=== PATIENT | female | born 1980 | race Caucasian/White ===

== ENCOUNTER 2018-07-04 12:46 | Day surgery (SDC) | payer BC ==
[2018-07-03 16:25] VITALS: BMI 36.8
[2018-07-04] MEDS ORDERED: fentaNYL CITRATE 250 MCG/5 ML VIAL ONE (14:03)
[2018-07-04] MEDS ORDERED: PROPOFOL 20 ML ONE ×2 (14:03)
[2018-07-04] MEDS ORDERED: MIDAZOLAM HCL 2 MG/2 ML SINGLE DOSE VIAL ONE (14:03)
[2018-07-04] MEDS ORDERED: DEXAMETHASONE SOD PHOSPHATE 4 MG/1 ML VIAL ONE (14:03)
--- NOTE | 2018-07-04 14:29 | HP ---
History & Physical Update - History History: No Change (Menorrhaghia) - Physical Physical: No Change - Assessment Assessment: No Change - Plan Plan: No Change (Hysteroscopy, excision of uterine mass, D&C)
[2018-07-04] MEDS ORDERED: ONDANSETRON 4 MG/2 ML VIAL IVPUSH PRN (14:43)
[2018-07-04] MEDS ORDERED: oxyCODONE HCL 5 MG TABLET PO PRN (14:43)
[2018-07-04] MEDS ORDERED: PROMETHAZINE HCL 25 MG/1 ML VIAL IVPUSH PRN (14:43)
[2018-07-04] MEDS ORDERED: ceFAZolin SODIUM 1 GM VIAL IVPB ONE (14:44)
--- NOTE | 2018-07-04 17:07 | OP ---
Operative Note - Note: Operative Date: 07/04/18 Pre-Operative Diagnosis: Menometrorrhagia, fibroid uterus, endometrial mass Operation: Hysteroscopy, myomectomy, D&C Findings: submucosal/intra-cavitary myoma Post-Operative Diagnosis: Other (Menometrorrhagia, fibroid uterus, submucosal/ intra-cavitary myoma) Surgeon: Juan José Goel Anesthesiologist/PSYCHOLOGIST ENGINEERING: Sampson Hummel Anesthesia: General Specimens Removed: Submucosal myoma Estimated Blood Loss (mls): 100 Drains & Tubes with Location: Straight cath bladder at end of procedure Blood Volume Replaced (mls): 0 Fluid Volume Replaced (mls): 900 Operative Report Dictated: Yes
[2018-07-04 18:28] VITALS: BP 125/79; PULSE 76; TEMP 98.3
--- NOTE | 2018-07-04 20:40 | OP ---
DATE OF OPERATION: 07/04/2018 PREOPERATIVE DIAGNOSIS: Menometrorrhagia. Fibroid uterus. Endometrial mass. POSTOPERATIVE DIAGNOSIS: Menometrorrhagia. Fibroid uterus. Protruding submucosal/intracavitary myoma. SURGEON: Nasim Lopez M.D. ANESTHESIOLOGIST: Sampson Hummel M.D. ANESTHESIA: General anesthesia. COMPLICATIONS: None. ESTIMATED BLOOD LOSS: 100 mL PATHOLOGY: Fragments of the resected submucosal myoma, endometrial curettings. PROCEDURE: Hysteroscopy, myomectomy, dilation and curettage. FINDINGS: Examination under anesthesia revealed a small anteverted uterus. Speculum examination revealed active vaginal bleeding, hysteroscopy revealed a large submucosal/intracavitary myoma protruding mostly from the left uterine wall. The uterine cavity was overall enlarged and was sounded to 10 cm. PROCEDURE: The patient was met preoperatively. Risks, benefits, and alternatives of surgery were discussed in detail. All questions were answered. The patient verbalized her understanding. We reviewed the consent form, and the consent form was signed. All questions about the consent were also answered to patient's satisfaction. The patient was then brought to the OR with the IV running. She was placed on a surgical table in the supine position. The general anesthesia was achieved without difficulty. The patient was then placed in a dorsal lithotomy position using adjustable Calvin stirrups. She was examined under anesthesia with the findings as described above. The patient was then prepped and draped in the usual sterile fashion. A timeout procedure was conducted as per standard protocol. The surgeons then proceeded with the operation. A sterile speculum was introduced inside the patient's vagina. There was active bleeding noted from the uterus. The cervix was grasped with a single-toothed tenaculum. A real time pelvic abdominal ultrasound to localize the endometrial mass. The hysteroscope was then introduced through the cervical canal and not the uterine cavity. The hysteroscopy revealed a large intracavitary mass consistent with the fibroid. It was protruding mostly from the left uterine wall. A Symphion resectoscope was then used to excise the visualized portions of the fibroid. Once this was completed, good hemostasis was achieved with judicious use of cautery, also utilizing Symphion hysteroscope and resectoscope. Good hemostasis was noted. The hysteroscope was then removed from the patient. A sharp uterine curettage was performed under real time ultrasound guidance. Once this was completed, all of the tissue was sent to pathology for evaluation. All of the instruments were removed from the patient. Sponge, lap, and instrument counts were correct. Once again, good hemostasis was confirmed. The patient was then returned to supine position. She was transferred to recovery room, in stable condition and awake. NASIM LOPEZ M.D. [id number]
== END 2018-07-04 18:55 | disposition home or self-care (01) ==
LOC: JASU-SURG 12:46
PROVIDERS: ATTEND Obstetrics & Gynecology
PROC: 0UJD8ZZ Inspection of Uterus and Cervix, Via Natural or Artificial Opening Endoscopic (ICD-10-PCS; 2018-07-04)
PROC: 0UB98ZZ Excision of Uterus, Via Natural or Artificial Opening Endoscopic (ICD-10-PCS; principal; 2018-07-04 14:00)
PROC: 0UDB7ZX Extraction of Endometrium, Via Natural or Artificial Opening, Diagnostic (ICD-10-PCS; 2018-07-04 14:00)
DX: N92.1 Excessive and frequent menstruation with irregular cycle (principal); D25.0 Submucous leiomyoma of uterus
CPT/HCPCS: 36415; 76998-TC; 84703; 86850; 86900; 86901; 88305-TC; 94760

== ENCOUNTER 2019-11-14 12:33 | Inpatient (IN) | payer BC ==
[2019-11-14] MEDS ORDERED: SODIUM CHLORIDE 0.9% 500 ML INFUS.BAG IV ONE (13:20)
--- NOTE | 2019-11-14 14:01 | PDOC ---
History of Present Illness - General Chief Complaint: Vaginal Bleeding Stated Complaint: WEAKNESS Time Seen by Provider: 11/14/19 12:40 History Source: Patient Exam Limitations: No Limitations - History of Present Illness Initial Comments: 11/14/19 13:46 39-year-old female history of chronic anemia, irregular menses, uterine fibroids status post ablation x3, last ablation June 2018, blood transfusion approximately 18 months ago. Presents complaining of having vaginal bleeding x 5 days becoming heavier over the past 24 hours. She has soaked approximately 9 pads since 8 AM this morning. Feeling frontal headache, dizziness, fatigue, thirst and "shaky". Denies chest pain, shortness of breath, diarrhea, vomiting, back pain or any urinary symptoms. PASTRYCOOK: Dr. Goel PMD: Aileen Liz ([facility]) ROS: as above PE: GENERAL: Pallor HEAD: NCAT EYES: Pupils equal, round and reactive to light, sclera anicteric, conjunctiva clear ENT: pharynx: no erythema, no exudate, uvula midline NECK: supple CHEST: nontender RESP: clear, no w/r/r CARDIO: rrr, no m/g/r ABD: +BS, soft, nontender, non distended pelvic: Approximately 10 cc of blood in the vault, no clots noted, os closed, no CMT, no adnexal tenderness to palpation BACK: no midline spinal ttp, no CVAT EXTREMITIES: Normal range of motion, no edema NEUROLOGICAL: Normal speech, normal gait SKIN: Warm, Dry Is this a multiple visit Asthma Patient?: No Past History - Medical History Allergies/Adverse Reactions: Allergies Allergy/AdvReac Type Severity Reaction Status Date / Time Penicillins AdvReac Severe Rash Verified 11/14/19 13:20 Home Medications: Ambulatory Orders NK [No Known Home Medication] 11/14/19 Anemia: Yes Asthma: No Cancer: No Cardiac Disorders: No CVA: No COPD: No CHF: No Dementia: No Diabetes: No GI Disorders: No Disorders: No HTN: No Hypercholesterolemia: No Liver Disease: No Seizures: No Thyroid Disease: No - Surgical History Abdominal Surgery: No Appendectomy: No Cardiac Surgery: No Cholecystectomy: No Lung Surgery: No Neurologic Surgery: No Orthopedic Surgery: No - Reproductive History Is Patient Now?: No - Immunization History Immunization Up to Date: No - Psycho-Social/Smoking History Smoking History: Never smoked Have you smoked in the past 12 months: No Information on smoking cessation initiated: No - Substance Abuse Hx (Audit-C & DAST Scrn) How often the patient has a drink containing alcohol: Never Score: In Men: 4 or > Positive; In Women: 3 or > Positive: 0 Screen Result (Pos requires Nsg. Audit-10AR): Negative In the last yr the pt used illegal drug/Rx for NonMed reason: No Score: Yes response is considered Positive: 0 Screen Result (Positive result requires Nsg. DAST-10): Negative *Physical Exam - Vital Signs Last Vital Signs Temp Pulse Resp BP Pulse Ox 98.3 F 89 18 108/54 L 100 11/14/19 12:35 11/14/19 12:35 11/14/19 12:35 11/14/19 12:35 11/14/19 12:35 ED Treatment Course - LABORATORY CBC & Chemistry Diagram: 11/14/19 13:40 11/14/19 13:40 - RADIOLOGY Radiology Studies Ordered: Category Date Time Status CHEST PA & LAT [RAD] Stat Radiology 11/14/19 13:20 Ordered Medical Decision Making - Medical Decision Making 11/14/19 14:47 39-year-old female history of chronic anemia, irregular menses, uterine fibroids status post ablation x3, last ablation June 2018, blood transfusion approximately 18 months ago. Presents complaining of having vaginal bleeding x 5 days becoming heavier over the past 24 hours. She has soaked approximately 9 pads since 8 AM this morning. Feeling frontal headache, dizziness, fatigue, thirst and "shaky". Denies chest pain, shortness of breath, diarrhea, vomiting, back pain or any urinary symptoms. hg 6.8 awaiting ecg, cxr covide test ordered Awaiting type and screen Ordered 1 unit of packed red blood cells Will admit 11/14/19 14:[address] Goel who will evaluate patient this afternoon in the ED Spoke with admitting resident, will admit to Dr. Hurtado 11/14/19 14:59 Discharge - Discharge Information Problems reviewed: Yes Clinical Impression/Diagnosis: Symptomatic anemia Condition: Stable - Admission Yes - Follow up/Referral - Patient Discharge Instructions - Post Discharge Activity
[2019-11-14 14:03] LABS: BASO % 1.3 % (0-2.0); HEMATOCRIT 23.5 % (32.4-45.2); LYMPH % 16.8 % (8-40); MCHC 28.9 g/dl (32.0-36.0); MEAN CELL VOLUME 65.9 fl (80-96); MONO % 4.8 % (3.8-10.2); NEUT % 75.1 % (42.8-82.8); PLATELET COUNT 469 K/MM3 (134-434); RBC 3.56 M/mm3 (3.60-5.2); RDW 20.6 % (11.6-15.6); WHITE BLOOD COUNT 8.2 K/mm3 (4.0-10.0)
[2019-11-14 14:05] LABS: HEMOGLOBIN 6.8 GM/dL (10.7-15.3)
[2019-11-14 14:22] LABS: ALBUMIN 3.5 g/dl (3.4-5.0); ALK PHOS 109 U/L (45-117); ANION GAP 5 MMOL/L (8-16); BILIRUBIN,TOTAL 0.2 mg/dL (0.2-1); BLOOD UREA NITROGEN 9.2 mg/dL (7-18); CALCIUM 8.7 mg/dL (8.5-10.1); CHLORIDE 106 mmol/L (98-107); CO2 26 mmol/L (21-32); CREATININE 0.8 mg/dL (0.55-1.3); GLUCOSE,RANDOM 99 mg/dL (74-106); POTASSIUM 3.8 mmol/L (3.5-5.1); SGOT/AST 17 U/L (15-37); SGPT/ALT 21 U/L (13-61); SODIUM 138 mmol/L (136-145); TOT PROT 7.2 g/dl (6.4-8.2)
[2019-11-14 14:33] LABS: ANISOCYTOSIS 2+; MACROCYTOSIS 0; PLATELET ESTIMATE NORMAL
[2019-11-14 15:26] LABS: ACTIVATED PTT 34.2 SECONDS (25.2-36.5); INR 1.03 (0.83-1.09); PROTHROMBIN TIME (PATIENT) 12.2 SEC (9.7-13.0)
[2019-11-14 15:29] LABS: EPI CELLS 4 /uL (0-25.1); HYALINE CASTS 6 /uL (0-3.1); PH,URINE 5.5 (5.0-8.0); URINE APPEARANCE CLOUDY; URINE BACTERIA 110 /uL (0-1359); URINE BILIRUBIN NEGATIVE (NEGATIVE); URINE COLOR ORANGE; URINE GLUCOSE (UA) NEGATIVE (NEGATIVE); URINE KETONE NEGATIVE (NEGATIVE); URINE LEUK ESTERASE 1+ (NEGATIVE); URINE NITRITE NEGATIVE (NEGATIVE); URINE PROTEIN 2+ (NEGATIVE); URINE RBC 20239 /uL (0-23.9); URINE WBC 177 /uL (0-25.8)
--- NOTE | 2019-11-14 20:39 | CON.OBG ---
Consult Consult Specialty:: [employer] WORKER Referred by:: ER Reason for Consultation:: Menorrhagia, anemia, fibroid uterus - History of Present Illness Chief Complaint: 39yo P2 with heavy menses and prior h/o endometrial ablaton, presented to ER with heavy vaginal bleeding. History of Present Illness: The pt has a h/o endometrial ablation in 2016, followed by persistent heavy menses. She then underwent hysteroscopic fibroid resection in 2019. The pt had no bleeding after that x 3-4 months after which she began bleeding again. The pt reports that her last 2 periods were long and heavy. She states current period began about 5 d ago and heavy x 24 hrs. On ER presentation the pt reported feeling headache and tired. The pt is noted to have stable BP, not tachycardic. She is now getting a blood transfusion. 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[employer]: No: Alzheimer's, CVA, Dementia, Migraine, Multiple Sclerosis, Peripheral Neuropathy, Parkinson's, Seizure, Syncope, TIA, Vertigo, Other Cardio/Vascular: No: AFIB, Aneurysm, Aortic Insufficiency, Aortic Stenosis, CAD, CHF, Deep Vein Thrombosis, HTN, Hyperlipdemia, UT, Mitral Insufficiency, Mitral Stenosis, Murmur, Pulmonary Hypertension, Other Pulmonary: No: Asthma, Bronchitis, Cancer, COPD, O2 Dependent, Pneumonia, Previously Intubated, Pulmonary Embolus, Pulmonary Fibrosis, Sleep Apnea, Other Gastrointestinal: No: Ascites, Cancer, Constipation, Crohn's Disease, Diverticulitis, Diverticulosis, Esophageal Varices, Gastritis, GERD, GI Bleed, Hemorrhoids, Hiatal Hernia, Inflamatory Bowel Disease, Irritable Bowel Disease, Pancreatitis, Peptic Ulcer Disease, Ulcerative Colitis, Other Hepatobiliary: No: Cirrhosis, Cholelithiasis, Cholecystitis, Choledocholithiasis, Hepatitis A, Hepatitis B, Hepatitis C, Other Renal/: No: Renal Failure, Renal Inusuff, BPH, Cancer, Hematuria, Hemodialysis, Neurogenic Bladder, Renal Calculi, UTI, Other Reproductive: No: Ectopic , Endometriosis, Fibroids, PID, Polycystic Ovary Syndrome, Postmenopausal, Other ...LMP: 11/11/19 ...: No Heme/Onc: Yes: Anemia Infectious Disease: No: AIDS, C-Diff, Herpes Zoster, HIV, MRSA, STD's, Tuberculosis, VREF, Other Psych: No: Addictions, Anxiety, Bipolar, Depression, Panic, Psychosis, Schizophrenia, Other Musculoskeletal: No: Bursitis, Chronic low back pain, Hemiparesis, Hemiplegia, Osteoarthritis, Paraplegia, Other Rheumatology: No: Fibromyalgia, Gout, Lupus, Rheumatoid Arthritis, Sarcoidosis, Vasculitis, Other ENT: No: Allergic Rhinitis, Sinusitis, Other Endocrine: No: [place]'s Disease, Julissa's Disease, Diabetes Insipidus, Diabetes Mellitus, Hyperparathyroidism, Hyperthyroidism, Hypothyroidism, Osteop enia, SIADH, Other Dermatology: No: Basal Cell, Cellulitis, Eczema, Melanoma, Psoriasis, Squamous Cell, Other Additional Medical History: Obesity - Past Surgical History Past Surgical History: Yes: (x 2), Tubal Ligation Additional Surgical History: D&C/Endometrial ablation ([facility]) in 03/11/2015. Hysteroscopic Myomectomy in 06/2018 - Alcohol/Substance Use Hx Alcohol Use: Yes (social) History of Substance Use: reports: None - Smoking History Smoking history: Never smoked Have you smoked in the past 12 months: No - Social History ADL: Independent Home Medications - Allergies Allergies/Adverse Reactions: Allergies Allergy/AdvReac Type Severity Reaction Status Date / Time Penicillins AdvReac Severe Rash Verified 11/14/19 13:20 - Home Medications Home Medications: Ambulatory Orders NK [No Known Home Medication] 11/14/19 Family Medical History Family Hx Diabetes: Grandmother (maternal) Review of Systems - Review of Systems Constitutional: reports: Weakness Eyes: reports: No Symptoms HENT: reports: No Symptoms Neck: reports: No Symptoms Cardiovascular: reports: No Symptoms Respiratory: reports: No Symptoms Gastrointestinal: reports: No Symptoms Genitourinary: reports: No Symptoms Breasts: reports: No Symptoms Reported Musculoskeletal: reports: No Symptoms Integumentary: reports: No Symptoms Neurological: reports: No Symptoms Endocrine: reports: No Symptoms Hematology/Lymphatic: reports: No Symptoms Psychiatric: reports: No Symptoms Pain Intensity: 0 Physical Exam-[employer] WORKER Vital Signs: Vital Signs Temperature 98.5 F 11/14/19 19:01 Pulse Rate 85 11/14/19 19:01 Respiratory Rate 18 11/14/19 19:01 Blood Pressure 107/66 11/14/19 19:01 O2 Sat by Pulse Oximetry (%) 100 11/14/19 19:01 Constitutional: Yes: Well Nourished, No Distress, Calm Eyes: Yes: WNL, Conjunctiva Clear, EOM Intact HENT: Yes: WNL, Atraumatic, Normocephalic Neck: Yes: WNL, Supple, Trachea Midline Cardiovascular: Yes: WNL, Regular Rate and Rhythm Respiratory: Yes: WNL, Regular, CTA Bilaterally Gastrointestinal: Yes: WNL, Normal Bowel Sounds, Soft ...Rectal Exam: Yes: Deferred Renal/: Yes: Vaginal Bleeding Pelvis: Yes: WNL External Genitalia: Yes: Normal Internal Exam Deferred: No Vaginal Exam: Yes: Bleeding (excessive) Cervix: Yes: Normal Uterus: Yes: Normal, Freely Moveable, Anteverted Adnexa: Normal: Left, Right Musculoskeletal: Yes: WNL Extremities: Yes: WNL Edema: No Integumentary: Yes: WNL Neurological: Yes: WNL, Alert, Oriented ...Motor Strength: WNL Psychiatric: Yes: WNL, Alert, Oriented Labs: CBC, BMP 11/14/19 13:40 11/14/19 13:40 Problem List - Problems (1) Excessive and frequent menstruation with regular cycle Assessment/Plan: Pt with menorrhagia that resulted in anemia. Patient had benign endometrial path in 06/2018. Plan to administer IV estrogen to stop/slow the bleeding and allow for Hg to increase. She is awaiting firther evaluation with pelvic US. If the IV estrogen stops the bleeding, plan to d/c home with combination control pills. I will hold off on D&C or other surgical intervention, in attempt to increase Hg pre-op. We discussed a possible hysterectomy in the future. Problems reviewed: Yes Code(s): N92.0 - EXCESSIVE AND FREQUENT MENSTRUATION WITH REGULAR CYCLE (2) Anemia due to blood loss Assessment/Plan: Advise to transfuse to Hct at/above 30%. Problems reviewed: Yes Code(s): D50.0 - IRON DEFICIENCY ANEMIA SECONDARY TO BLOOD LOSS (CHRONIC) (3) Fibroid uterus Assessment/Plan: Plan for pelvic US TV/TA Code(s): D25.9 - LEIOMYOMA OF UTERUS, UNSPECIFIED Qualifiers: Uterine leiomyoma location: unspecified location Qualified Code(s): D25.9 - Leiomyoma of uterus, unspecified
[2019-11-14] MEDS ORDERED: ESTROGENS,CONJUGATED 25 MG VIAL IVPB PRN (20:41)
[2019-11-14] MEDS ORDERED: ESTROGENS,CONJUGATED 25 MG VIAL IVPB ONE (21:10)
--- NOTE | 2019-11-14 21:43 | HP ---
CHIEF COMPLAINT: fatigue HISTORY OF PRESENT ILLNESS: 39 F h/o uterine fibroids, menstrual bleeding in the past requiring pRBC transfusions presents w/ fatigue and referral from [facility] outpatient office for transfusion for symptomatic anemia of Hgb 6.8. Patient endorses chronic fatigue, occasional dizziness/palpitations, denies fever/chills/SOB. Endorses many years of heavy menstrual bleeding, last transfusion was about 1 year ago. ER course was notable for: (1) Hgb 6.8 (2) 1 unit pRBC transfusion Recent Travel: denies PAST MEDICAL HISTORY: as above PAST SURGICAL HISTORY: denies Social History: denies x3 Allergies Penicillins Adverse Reaction (Severe, Verified 11/14/19 13:20) Rash HOME MEDICATIONS: Home Medications Medication Instructions Recorded NK [No Known Home Medication] 11/14/19 PHYSICAL EXAMINATION Vital Signs - 24 hr 11/14/19 11/14/19 11/14/19 12:35 15:40 17:16 Temperature 98.3 F 98.7 F 98.9 F Pulse Rate 89 Pulse Rate [ 79 84 Left Radial] Respiratory 18 16 18 Rate Blood Pressure 108/54 L Blood Pressure 112/64 109/55 L [Left Arm] O2 Sat by Pulse 100 100 100 Oximetry (%) 11/14/19 11/14/19 19:01 20:50 Temperature 98.5 F Pulse Rate Pulse Rate [ 85 86 Left Radial] Respiratory 18 18 Rate Blood Pressure Blood Pressure 107/66 103/59 L [Left Arm] O2 Sat by Pulse 100 99 Oximetry (%) GENERAL: Awake, alert, and fully oriented, slightly pale HEENT NC/AT, dry MM, pale conjunctiva, neck supple LUNGS: Breath sounds equal, clear to auscultation bilaterally. No wheezes, and no crackles. No accessory muscle use. HEART: Regular rate and rhythm, normal S1 and S2 without murmur, rub or gallop. ABDOMEN: Soft, nontender, not distended, normoactive bowel sounds, no guarding, no rebound, no masses. No hepatomegaly or splenomegaly. MUSCULOSKELETAL: Normal range of motion at all joints. No bony deformities or tenderness. No CVA tenderness. UPPER EXTREMITIES: 2+ pulses, warm, well-perfused. No cyanosis. No clubbing. No peripheral edema. LOWER EXTREMITIES: 2+ pulses, warm, well-perfused. No calf tenderness. No peripheral edema. NEUROLOGICAL: Cranial nerves II-XII intact. Normal speech. Normal gait. PSYCHIATRIC: Cooperative. Good eye contact. Appropriate mood and affect. SKIN: Warm, dry, normal turgor, no rashes or lesions noted, normal capillary refill. Laboratory Results - last 24 hr 11/14/19 11/14/19 11/14/19 13:40 13:40 13:40 WBC 8.2 RBC 3.56 L Hgb 6.8 L* Hct 23.5 L MCV 65.9 L MCH 19.0 L MCHC 28.9 L RDW 20.6 H Plt Count 469 H MPV 7.0 L Absolute Neuts (auto) 6.1 Neutrophils % 75.1 Lymphocytes % 16.8 Monocytes % 4.8 Eosinophils % 2.0 Basophils % 1.3 Nucleated RBC % 0 Hypochromia 0 Platelet Estimate Normal Polychromasia 0 Poikilocytosis 0 Anisocytosis 2+ Microcytosis 2+ Macrocytosis 0 PT with INR 12.20 INR 1.03 PTT (Actin FS) 34.2 Sodium 138 Potassium 3.8 Chloride 106 Carbon Dioxide 26 Anion Gap 5 L BUN 9.2 Creatinine 0.8 Est GFR (CKD-EPI)AfAm 106.13 Est GFR (CKD-EPI)NonAf 91.57 Random Glucose 99 Calcium 8.7 Total Bilirubin 0.2 AST 17 ALT 21 Alkaline Phosphatase 109 Total Protein 7.2 Albumin 3.5 Beta HCG, Quant < 1.0 Urine Color Urine Appearance Urine pH Ur Specific [place] Urine Protein Urine Glucose (UA) Urine Ketones Urine Blood Urine Nitrite Urine Bilirubin Urine Urobilinogen Ur Leukocyte Esterase Urine WBC (Auto) Urine RBC (Auto) Urine Casts (Auto) U Pathogenic Cast Auto U Epithel Cells (Auto) Urine Bacteria (Auto) Blood Type Antibody Screen Crossmatch 11/14/19 11/14/19 11/14/19 13:40 15:00 15:30 WBC RBC Hgb Hct MCV MCH MCHC RDW Plt Count MPV Absolute Neuts (auto) Neutrophils % Lymphocytes % Monocytes % Eosinophils % Basophils % Nucleated RBC % Hypochromia Platelet Estimate Polychromasia Poikilocytosis Anisocytosis Microcytosis Macrocytosis PT with INR INR PTT (Actin FS) Sodium Potassium Chloride Carbon Dioxide Anion Gap BUN Creatinine Est GFR (CKD-EPI)AfAm Est GFR (CKD-EPI)NonAf Random Glucose Calcium Total Bilirubin AST ALT Alkaline Phosphatase Total Protein Albumin Beta HCG, Quant Urine Color [place] Urine Appearance Cloudy Urine pH 5.5 Ur Specific [place] 1.026 Urine Protein 2+ H Urine Glucose (UA) Negative Urine Ketones Negative Urine Blood 3+ H Urine Nitrite Negative Urine Bilirubin Negative Urine Urobilinogen 1.0 Ur Leukocyte Esterase 1+ H Urine WBC (Auto) 177 Urine RBC (Auto) 73935 Urine Casts (Auto) 6 U Pathogenic Cast Auto Non seen U Epithel Cells (Auto) 4 Urine Bacteria (Auto) 110 Blood Type O POSITIVE O POSITIVE Antibody Screen Negative Negative Crossmatch See Detail ASSESSMENT/PLAN: 39 F Symptomatic anemia h/o uterine fibroids Obesity Plan: Transfuse w/ goal >7.0, if plans for inpatient surgery then give additional unit of pRBC for improvement of Hgb by 30% Plan for inpatient estrogen therapy per [facility], then OCP as OP Ambulation for DVT ppx [facility] service following Monitor on floors Family Medical History Family History: As Documented Visit type - Emergency Visit Emergency Visit: Yes ED Registration Date: 11/14/19 Care time: The patient presented to the Emergency Department on the above date and was hospitalized for further evaluation of their emergent condition. - New Patient This patient is new to me today: Yes Date on this admission: 11/14/19 - Critical Care Critical Care patient: No
[2019-11-15 00:31] VITALS: BMI 38.4
[2019-11-15] MEDS ORDERED: oxyCODONE HCL 5 MG TABLET PO PRN (00:38)
[2019-11-15] MEDS ORDERED: SODIUM CHLORIDE 1,000 ML IV SCH (00:45)
[2019-11-15 08:48] LABS: BASO % 1.5 % (0-2.0); EOS % 5.3 % (0-4.5); HEMATOCRIT 21.7 % (32.4-45.2); LYMPH % 20.5 % (8-40); MCHC 30.4 g/dl (32.0-36.0); MEAN CELL VOLUME 69.3 fl (80-96); MEAN PLT VOLUME 7.2 fl (7.5-11.1); MONO % 6.7 % (3.8-10.2); PLATELET COUNT 379 K/MM3 (134-434); RBC 3.13 M/mm3 (3.60-5.2); RDW 22.5 % (11.6-15.6); WHITE BLOOD COUNT 6.9 K/mm3 (4.0-10.0)
[2019-11-15 09:09] LABS: HEMOGLOBIN 6.6 GM/dL (10.7-15.3)
[2019-11-15 09:14] LABS: ALBUMIN 2.7 g/dl (3.4-5.0); BILIRUBIN,TOTAL 0.4 mg/dL (0.2-1); BLOOD UREA NITROGEN 9.7 mg/dL (7-18); CALCIUM 7.4 mg/dL (8.5-10.1); CREATININE 0.6 mg/dL (0.55-1.3); TOT PROT 5.5 g/dl (6.4-8.2)
[2019-11-15 10:49] LABS: PLATELET ESTIMATE NORMAL
[2019-11-15] MEDS ORDERED: PT OWN MED DRAWER 7, Y5N ONE (12:22)
--- NOTE | 2019-11-15 12:34 | PN ---
Progress Note (SOAP) - Subjective Chief Complaint: Pt is feeling better. She is getting a second unit of PRBC. The pt reports the vaginal bleeding decreased. No dizziness, no SOB, no chest pain. History of Present Illness: The pt was admitted for symptomatic anemia due to menorrhagia. She is now getting a blood transfusion. Pt is also s/p Estrogen IV x 1 with improvement in bleeding. - Current Medications Current Medications: Active Medications Estrogens Conjugated (Premarin Injection -) 25 mg IVPB Q6H PRN PRN Reason: VAGINAL BLEEDING Sodium Chloride (Normal Saline -) 1,000 mls @ 100 mls/hr IV ASD[facility] Last Admin: 11/15/19 01:00 Dose: 100 mls/hr Documented by: Oxycodone HCl (Roxicodone -) 5 mg PO ONCE PRN PRN Reason: PAIN LEVEL 7 - 10 - Objective Vital Signs: Vital Signs Temperature 99.3 F 11/15/19 05:55 Pulse Rate 80 11/15/19 05:55 Respiratory Rate 18 11/15/19 05:55 Blood Pressure 96/56 L 11/15/19 05:55 O2 Sat by Pulse Oximetry (%) 97 11/15/19 05:55 Constitutional: Yes: Well Nourished, No Distress, Calm Eyes: Yes: WNL, Conjunctiva Clear, EOM Intact HENT: Yes: WNL, Atraumatic, Normocephalic Neck: Yes: WNL, Supple, Trachea Midline Cardiovascular: Yes: WNL, Regular Rate and Rhythm Respiratory: Yes: WNL, Regular, CTA Bilaterally Gastrointestinal: Yes: WNL, Normal Bowel Sounds, Soft Genitourinary: Yes: Vaginal Bleeding (light) Musculoskeletal: Yes: WNL Extremities: Yes: WNL Peripheral Pulses WNL: Yes Edema: No Integumentary: Yes: WNL Neurological: Yes: WNL, Alert, Oriented ...Motor Strength: Yes: WNL Psychiatric: Yes: WNL, Alert, Oriented Labs Lab Results: CBCD WBC 6.9 K/mm3 (4.0-10.0) 11/15/19 07:48 RBC 3.13 M/mm3 (3.60-5.2) L 11/15/19 07:48 Hgb 6.6 GM/dL (10.7-15.3) L* 11/15/19 07:48 Hct 21.7 % (32.4-45.2) L 11/15/19 07:48 MCV 69.3 fl (80-96) L 11/15/19 07:48 MCHC 30.4 g/dl (32.0-36.0) L 11/15/19 07:48 RDW 22.5 % (11.6-15.6) H 11/15/19 07:48 Plt Count 379 K/MM3 (134-434) 11/15/19 07:48 MPV 7.2 fl (7.5-11.1) L 11/15/19 07:48 CMP Sodium 142 mmol/L (136-145) 11/15/19 07:48 Potassium 4.0 mmol/L (3.5-5.1) 11/15/19 07:48 Chloride 112 mmol/L (98-107) H 11/15/19 07:48 Carbon Dioxide 24 mmol/L (21-32) 11/15/19 07:48 Anion Gap 6 MMOL/L (8-16) L 11/15/19 07:48 BUN 9.7 mg/dL (7-18) 11/15/19 07:48 Creatinine 0.6 mg/dL (0.55-1.3) 11/15/19 07:48 Random Glucose 93 mg/dL (74-106) 11/15/19 07:48 Calcium 7.4 mg/dL (8.5-10.1) L 11/15/19 07:48 Total Bilirubin 0.4 mg/dL (0.2-1) 11/15/19 07:48 AST 14 U/L (15-37) L 11/15/19 07:48 ALT 17 U/L (13-61) 11/15/19 07:48 Alkaline Phosphatase 82 U/L (45-117) 11/15/19 07:48 Total Protein 5.5 g/dl (6.4-8.2) L 11/15/19 07:48 Albumin 2.7 g/dl (3.4-5.0) L 11/15/19 07:48 Imaging - Results Ultrasound: Report Reviewed (submucosal myoma and possible cervical myoma vs. polyp on ultrasound) Problem List - Problems (1) Excessive and frequent menstruation with regular cycle Assessment/Plan: Pt with menorrhagia that resulted in anemia. Patient with known h/o fibroids. US images and reports were reviewed by me. She is noted to have a submucosal myoma and a possible cervical myoma vs. polyp (or blood clot). However, no cervical masses were noted on exam. The IV estrogen x 1 dose had improved the bleeding. Plan to give a second dose to achieve a more sustained cessation of vaginal bleeding and to allow for improvement in Hg. Plan to d/c home with combination control pills, as a taper: 3 tab PO daily x 3 days, followed by 2 tab PO daily x 2 days, followed by 1 tab PO daily. Pt will f/u with me as outpatient w/in 1-2 weeks. I will hold off on D&C or other surgical intervention, in attempt to increase Hg pre-op. We discussed a possible hysterectomy in the future. Problems reviewed: Yes Code(s): N92.0 - EXCESSIVE AND FREQUENT MENSTRUATION WITH REGULAR CYCLE (2) Anemia due to blood loss Assessment/Plan: Complete at least 3u PRBC prior to discharge. Multivitamins and PO iron at home. Problems reviewed: Yes Code(s): D50.0 - IRON DEFICIENCY ANEMIA SECONDARY TO BLOOD LOSS (CHRONIC) (3) Fibroid uterus Assessment/Plan: Pt with know uterine fibroids. The US reports and images were reviewed and d/w pt. Problems reviewed: Yes Code(s): D25.9 - LEIOMYOMA OF UTERUS, UNSPECIFIED Qualifiers: Uterine leiomyoma location: unspecified location Qualified Code(s): D25.9 - Leiomyoma of uterus, unspecified
--- NOTE | 2019-11-15 12:40 | EKG ---
Test Reason : Blood Pressure : / mmHG Vent. Rate : 075 BPM Atrial Rate : 075 BPM P-R Int : 132 ms QRS Dur : 086 ms QT Int : 398 ms P-R-T Axes : 009 -04 -09 degrees QTc Int : 444 ms POOR DATA QUALITY, INTERPRETATION MAY BE ADVERSELY AFFECTED NORMAL SINUS RHYTHM MINIMAL VOLTAGE CRITERIA FOR LVH, MAY BE NORMAL VARIANT NONSPECIFIC T WAVE ABNORMALITY NO PREVIOUS ECGS AVAILABLE Confirmed by KIERRA MON MD ([id number]) on 11/15/2019 12:40:15 PM Referred By: Confirmed By:KIERRA MON MD
--- NOTE | 2019-11-15 13:07 | PN ---
Teaching Attending Note Name of Resident: Fernando Caballero ATTENDING PHYSICIAN STATEMENT I saw and evaluated the patient. I reviewed the resident's note and discussed the case with the resident. I agree with the resident's findings and plan as documented. SUBJECTIVE: she feels much better now. no GALARZA . bleeding has much improved . changed one pad since am. no abd pain. no dysuria OBJECTIVE: NAd . awake , alert, cooperative . pale . MMM CV: RRR, no MRG Lungs: CTAB ext : No edema or erythema on upper or lower extremities Abd: soft, NT, ND, NL BS ASSESSMENT AND PLAN: 39 y/o lady with h/o chronic irion def anemia due to heavy menstrual periods form fibroids who was referred fro worsenign anemia. 1- Acute on chronic blood loss iron def anemia 2- asymptomatic pyuria. 3- uterine Lyomatomas. plan : - iron studies , TV US reviewed. - give 2 more units of RBC ( received one yesterday ) - PRODUCT MARKETING DIRECTOR input noted and appreciated. one more dose of Estrogen today - taper control pills at dc - will give a dose of Venofer today , then she was advised to get a full course of iron infusionas out pt with heme or PCP as she can't tolerate po iron - enlarged cervics to be followed as out pt - No need for Abx for asymptomatic pyuria . vaginal bleed could have affected UA as well will dc later today after repeating CBC.
--- NOTE | 2019-11-15 13:31 | PN ---
Physical Exam: SUBJECTIVE: Patient seen and examined at bedside. No acute events reported overnight. Patient states that she is feeling better this morning and doesn't feel as weak as yesterday. OBJECTIVE: Vital Signs Period Temp Pulse Resp BP Sys/Hi Pulse Ox Last 24 Hr 98.3 F-99.3 F 79-86 16-18 96-118/53-66 97-100 GENERAL: AAOx3, in no acute distress, appears pale HEENT: NCAT, PERRLA, EOMI, sclera anicteric, conjunctiva clear, oropharynx clear w/o exudates. MMM. NECK: Normal ROM, supple, no lymphadenopathy, JVD, or masses LUNGS: CTABL no wheezes/ rhonchi/ rales. No distress, speaks in full sentences. No increased work of breathing. HEART: RRR, normal S1 S2, no M/R/G, peripheral pulses 2+ and equal b/l ABDOMEN: Soft, NTND, + BS. No guarding or rebound. No hepatomegaly or splenomegaly. MSK: ROM WNL EXTREMITIES: Normal inspection. No peripheral edema. No clubbing or cyanosis. NEUROLOGICAL: CN II-XII intact. Normal speech, normal gait, no focal sensorimotor deficits. SKIN: Warm, Dry, normal turgor, no rashes or lesions noted Laboratory Results - last 24 hr CBC, BMP 11/15/19 07:48 11/15/19 07:48 11/14/19 11/14/19 11/14/19 13:40 13:40 13:40 WBC 8.2 RBC 3.56 L Hgb 6.8 L* Hct 23.5 L MCV 65.9 L MCH 19.0 L MCHC 28.9 L RDW 20.6 H Plt Count 469 H MPV 7.0 L Absolute Neuts (auto) 6.1 Neutrophils % 75.1 Lymphocytes % 16.8 Monocytes % 4.8 Eosinophils % 2.0 Basophils % 1.3 Nucleated RBC % 0 Hypochromia 0 Platelet Estimate Normal Platelet Comment Polychromasia 0 Poikilocytosis 0 Anisocytosis 2+ Microcytosis 2+ Macrocytosis 0 PT with INR 12.20 INR 1.03 PTT (Actin FS) 34.2 Sodium 138 Potassium 3.8 Chloride 106 Carbon Dioxide 26 Anion Gap 5 L BUN 9.2 Creatinine 0.8 Est GFR (CKD-EPI)AfAm 106.13 Est GFR (CKD-EPI)NonAf 91.57 Random Glucose 99 Hemoglobin A1c % Calcium 8.7 Iron TIBC Iron Saturation Unsaturated IBC Ferritin Total Bilirubin 0.2 AST 17 ALT 21 Alkaline Phosphatase 109 Total Protein 7.2 Albumin 3.5 TSH Beta HCG, Quant < 1.0 Urine Color Urine Appearance Urine pH Ur Specific [place] Urine Protein Urine Glucose (UA) Urine Ketones Urine Blood Urine Nitrite Urine Bilirubin Urine Urobilinogen Ur Leukocyte Esterase Urine WBC (Auto) Urine RBC (Auto) Urine Casts (Auto) U Pathogenic Cast Auto U Epithel Cells (Auto) Urine Bacteria (Auto) Blood Type Antibody Screen Crossmatch 11/14/19 11/14/19 11/14/19 13:40 15:00 15:30 WBC RBC Hgb Hct MCV MCH MCHC RDW Plt Count MPV Absolute Neuts (auto) Neutrophils % Lymphocytes % Monocytes % Eosinophils % Basophils % Nucleated RBC % Hypochromia Platelet Estimate Platelet Comment Polychromasia Poikilocytosis Anisocytosis Microcytosis Macrocytosis PT with INR INR PTT (Actin FS) Sodium Potassium Chloride Carbon Dioxide Anion Gap BUN Creatinine Est GFR (CKD-EPI)AfAm Est GFR (CKD-EPI)NonAf Random Glucose Hemoglobin A1c % Calcium Iron TIBC Iron Saturation Unsaturated IBC Ferritin Total Bilirubin AST ALT Alkaline Phosphatase Total Protein Albumin TSH Beta HCG, Quant Urine Color [place] Urine Appearance Cloudy Urine pH 5.5 Ur Specific [place] 1.026 Urine Protein 2+ H Urine Glucose (UA) Negative Urine Ketones Negative Urine Blood 3+ H Urine Nitrite Negative Urine Bilirubin Negative Urine Urobilinogen 1.0 Ur Leukocyte Esterase 1+ H Urine WBC (Auto) 177 Urine RBC (Auto) 83069 Urine Casts (Auto) 6 U Pathogenic Cast Auto Non seen U Epithel Cells (Auto) 4 Urine Bacteria (Auto) 110 Blood Type O POSITIVE O POSITIVE Antibody Screen Negative Negative Crossmatch See Detail See Detail 11/15/19 11/15/19 11/15/19 07:48 07:48 07:48 WBC 6.9 RBC 3.13 L Hgb 6.6 L* Hct 21.7 L MCV 69.3 L MCH 21.0 L D MCHC 30.4 L RDW 22.5 H Plt Count 379 MPV 7.2 L Absolute Neuts (auto) 4.5 Neutrophils % 66.0 Lymphocytes % 20.5 D Monocytes % 6.7 Eosinophils % 5.3 H D Basophils % 1.5 Nucleated RBC % 0 Hypochromia Platelet Estimate Normal Platelet Comment Present Polychromasia Poikilocytosis Anisocytosis Microcytosis Macrocytosis PT with INR INR PTT (Actin FS) Sodium 142 Potassium 4.0 Chloride 112 H Carbon Dioxide 24 Anion Gap 6 L BUN 9.7 Creatinine 0.6 Est GFR (CKD-EPI)AfAm 131.22 Est GFR (CKD-EPI)NonAf 113.22 Random Glucose 93 Hemoglobin A1c % < 3.5 L Calcium 7.4 L Iron 14 L TIBC 415 Iron Saturation 3 L Unsaturated IBC 401 H Ferritin 3.0 L Total Bilirubin 0.4 AST 14 L ALT 17 Alkaline Phosphatase 82 Total Protein 5.5 L Albumin 2.7 L TSH 2.66 Beta HCG, Quant Urine Color Urine Appearance Urine pH Ur Specific [place] Urine Protein Urine Glucose (UA) Urine Ketones Urine Blood Urine Nitrite Urine Bilirubin Urine Urobilinogen Ur Leukocyte Esterase Urine WBC (Auto) Urine RBC (Auto) Urine Casts (Auto) U Pathogenic Cast Auto U Epithel Cells (Auto) Urine Bacteria (Auto) Blood Type Antibody Screen Crossmatch Active Medications Generic Name Dose Route Start Last Admin Trade Name Freq PRN Reason Stop Dose Admin Estrogens Conjugated 25 mg 11/14/19 20:41 Premarin Injection - IVPB Q6H PRN VAGINAL BLEEDING Iron Sucrose 200 mg/ Sodium 100 mls @ 100 mls/hr 11/15/19 14:15 Chloride IVPB 11/15/19 15:14 ONCE ONE ASSESSMENT/PLAN: 39 y/o F with PMX of uterine fibroids and chonic iron deficiency anemia who is presenting with weakness, fatigue, and dizziness. Admitted for symptomatic anemia. #Symptomatic Anemia due to acute on chronic blood loss - will receive 3 more units of RBC today ( received one yesterday ) - Iron studies ordered - taper control pills at dc - 1 dose of Venofer today administered today- rest will be outpt f/u -repeat CBC ordered for tonight; will endorse to night team #Asymptomatic Pyuria -abx not indicated as patient is asymptomatic #Uterine Lyomatomas -as per COM WRITER reccs -incidental cervical mass will be f/u outpt with Dr. Goel #FEN -NS @ 100 mls/hr -monitor lytes, replete PRN -regular diet #PPx -DVT: SCDs dispo: continue to monitor in med/surg Visit type - Emergency Visit Emergency Visit: No - New Patient This patient is new to me today: Yes Date on this admission: 11/15/19 - Critical Care Critical Care patient: No - Discharge Referral Referred to [facility] Med P.C.: No ATTENDING PHYSICIAN STATEMENT I saw and evaluated the patient. I reviewed the resident's note and discussed the case with the resident. I agree with the resident's findings and plan as documented. SUBJECTIVE: OBJECTIVE: ASSESSMENT AND PLAN:
[2019-11-15] MEDS ORDERED: IRON SUCROSE INJECTION 200 MG in SODIUM CHLORIDE 90 ML IVPB ONE (14:15)
[2019-11-15 15:27] VITALS: BP 95/54; PULSE 88; TEMP 98.2
[2019-11-15] MEDS ORDERED: ACETAMINOPHEN 325 MG TABLET (FP) PO PRN (17:16)
--- NOTE | 2019-11-15 18:08 | DS ---
Physical Exam: SUBJECTIVE:Patient seen and examined at bedside. No acute events reported overnight. Patient states that she is feeling better this morning and doesn't feel as weak as yesterday. OBJECTIVE: Vital Signs Period Temp Pulse Resp BP Sys/Hi Pulse Ox Last 24 Hr 98.2 F-99.3 F 78-98 14-18 95-126/53-74 97-100 PHYSICAL EXAM GENERAL: AAOx3, in no acute distress, appears pale HEENT: NCAT, PERRLA, EOMI, sclera anicteric, conjunctiva clear, oropharynx clear w/o exudates. MMM. NECK: Normal ROM, supple, no lymphadenopathy, JVD, or masses LUNGS: CTABL no wheezes/ rhonchi/ rales. No distress, speaks in full sentences. No increased work of breathing. HEART: RRR, normal S1 S2, no M/R/G, peripheral pulses 2+ and equal b/l ABDOMEN: Soft, NTND, + BS. No guarding or rebound. No hepatomegaly or splenomegaly. MSK: ROM WNL EXTREMITIES: Normal inspection. No peripheral edema. No clubbing or cyanosis. NEUROLOGICAL: CN II-XII intact. Normal speech, normal gait, no focal sensorimotor deficits. SKIN: Warm, Dry, normal turgor, no rashes or lesions noted LABS Laboratory Results - last 24 hr CBC, BMP 11/15/19 07:48 11/15/19 07:48 11/14/19 11/14/19 11/14/19 13:40 13:40 15:30 WBC RBC Hgb Hct MCV MCH MCHC RDW Plt Count MPV Absolute Neuts (auto) Neutrophils % Lymphocytes % Monocytes % Eosinophils % Basophils % Nucleated RBC % Platelet Estimate Platelet Comment Sodium 138 Potassium 3.8 Chloride 106 Carbon Dioxide 26 Anion Gap 5 L BUN 9.2 Creatinine 0.8 Est GFR (CKD-EPI)AfAm 106.13 Est GFR (CKD-EPI)NonAf 91.57 Random Glucose 99 Hemoglobin A1c % Calcium 8.7 Iron TIBC Iron Saturation Unsaturated IBC Ferritin Total Bilirubin 0.2 AST 17 ALT 21 Alkaline Phosphatase 109 Total Protein 7.2 Albumin 3.5 TSH Beta HCG, Quant < 1.0 Blood Type O POSITIVE O POSITIVE Antibody Screen Negative Negative Crossmatch See Detail See Detail 09/18/20 09/18/20 09/18/20 07:48 07:48 07:48 WBC 6.9 RBC 3.13 L Hgb 6.6 L* Hct 21.7 L MCV 69.3 L MCH 21.0 L D MCHC 30.4 L RDW 22.5 H Plt Count 379 MPV 7.2 L Absolute Neuts (auto) 4.5 Neutrophils % 66.0 Lymphocytes % 20.5 D Monocytes % 6.7 Eosinophils % 5.3 H D Basophils % 1.5 Nucleated RBC % 0 Platelet Estimate Normal Platelet Comment Present Sodium 142 Potassium 4.0 Chloride 112 H Carbon Dioxide 24 Anion Gap 6 L BUN 9.7 Creatinine 0.6 Est GFR (CKD-EPI)AfAm 131.22 Est GFR (CKD-EPI)NonAf 113.22 Random Glucose 93 Hemoglobin A1c % < 3.5 L Calcium 7.4 L Iron 14 L TIBC 415 Iron Saturation 3 L Unsaturated IBC 401 H Ferritin 3.0 L Total Bilirubin 0.4 AST 14 L ALT 17 Alkaline Phosphatase 82 Total Protein 5.5 L Albumin 2.7 L TSH 2.66 Beta HCG, Quant Blood Type Antibody Screen Crossmatch HOSPITAL COURSE: 39 y/o F with PMX of uterine fibroids and chronic iron deficiency anemia who is presenting with weakness, fatigue, and dizziness. Admitted for symptomatic anemia. Patient has heavy menstrual cycles and has chronic anemia as a result. Patient received 4 units total of PRBC and was discharged with OCPs and control pills as per MEDICAL TECHNOLOGIST CLINICAL. Patient also received 1 dose of Venofer inpatient and will follow up out patient with heme for the rest of her iron transfusions. Patient was discharged with outpatient follow up with Dr. Goel. Date of Admission:11/14/19 11/14/19-CXR- Impression: No acute pathology appreciated. 11/14/19-US Transvaginal-1. Enlarged uterus with submucosal fibroid. 2. Possible cervical mass. Clinical correlation and follow-up recommended. 3. Complex left ovarian cyst. Please see above discussion. 11/14/19-EKG-NSR Date of Discharge: 11/15/19 Minutes to complete discharge: 36 Discharge Summary Problems reviewed: Yes Reason For Visit: SECONDARY ANEMIA Current Active Problems Anemia due to blood loss (Acute) Anemia (Chronic) Excessive and frequent menstruation with regular cycle (Chronic) Fibroid uterus (Chronic) Condition: Improved - Instructions Diet, Activity, Other Instructions: Your visit: You were admitted to the hospital for symptomatic anemia. You were found to have a very low hemoglobin level. You were treated with blood transfusion and an IV iron infusion with improvement of your symptoms. You will need more iron transfusions and should discuss receiving them with your primary care doctor. Additional Imaging Findings: -During your visit, we did an ultrasound of your uterus which showed a central uterine mass cyst and a submucosal fibroid measuring 4.2 x 3.5 x 4.1. Please follow up with your student life dean about this. -During your visit, we did an ultrasound of your uterus which showed a thickened endometrium of 11 mm. Please follow up with your RADIOLOGY INTERVENTIONAL PHYSICIAN about this. -During your visit, we did an ultrasound of your uterus which showed a cervical polyp or fibroid. Please follow up with your RADIOLOGY INTERVENTIONAL PHYSICIAN about this. -During your visit, we did an ultrasound of your uterus which showed a complex left ovarian cyst measuring 3.0 x 2.7 x 2.4. Please follow up with your RADIOLOGY INTERVENTIONAL PHYSICIAN about this. Medications changes: -Take ferrous fumarate 325mg tablets once daily -Take sprintec (norgestimate-ethinyl estradiol) tablets; take 3 tablets by mouth daily x 3 days, followed by 2 tablet by mouth daily x 2 days, followed by 1 tab by mouth daily -Continue to take all other home medications as prescribed. Follow up: - Please follow-up with your RADIOLOGY INTERVENTIONAL PHYSICIAN, Dr. Goel in 1 week. You should discuss the need for a hysterectomy in the future with your doctor. - Visit with your Primary Care Provider in 2 weeks. If you do not have a primary care provider you may make an appointment with Dr. Quiñones at the [facility] clinic located at [address] [place] [address] ([phone]). Additional Instructions: -You are being discharged to your home. -Please return to the Emergency Department if you experience worsening pain, vaginal bleeding, fevers, chills, shortness of breath, or chest pain, or if you experience any worsening, new or concerning symptoms. you need iron transfusion ( a few transfusion over 14 days ) . please follow with final touch up painter regarding that ( if you dont' have one you are refereed to dr. Arizmendi ) Referrals: Adalberto Quiñones MD [Staff Physician] - 2 Weeks Juan José Goel MD [Staff Physician] - 1 Week Rodrigo Loja MD [Staff Physician] - 2 Weeks Disposition: HOME - Home Medications Comprehensive Discharge Medication List: Ambulatory Orders Ferrous Fumarate [Ferretts] 325 mg PO DAILY #30 tablet 11/15/19 Norgestimate-Ethinyl Estradiol [Sprintec 28 Day Tablet] 1 each PO DAILY #28 tablet 11/15/19 This patient is new to me today: Yes Date on this admission: 11/16/19 Emergency Visit: No Critical Care patient: No - Discharge Referral Referred to [facility] Med P.C.: No ATTENDING PHYSICIAN STATEMENT I saw and evaluated the patient. I reviewed the resident's note and discussed the case with the resident. I agree with the resident's findings and plan as documented. SUBJECTIVE: OBJECTIVE: ASSESSMENT AND PLAN:
[2019-11-15 20:47] LABS: HEMATOCRIT 29.6 % (32.4-45.2); HEMOGLOBIN 9.3 GM/dL (10.7-15.3); MCH 23.2 pg (25.7-33.7); MCHC 31.5 g/dl (32.0-36.0); MEAN CELL VOLUME 73.7 fl (80-96); MEAN PLT VOLUME 7.3 fl (7.5-11.1); PLATELET COUNT 435 K/MM3 (134-434); RBC 4.02 M/mm3 (3.60-5.2); RDW 23.9 % (11.6-15.6); WHITE BLOOD COUNT 9.4 K/mm3 (4.0-10.0)
== END 2019-11-15 20:10 | disposition home or self-care (01) | DRG 812 ==
LOC: JER 12:33 → JERBED 15:34 → J6S 23:41
PROVIDERS: ATTEND Internal Medicine
PROC: 30233N1 Transfusion of Nonautologous Red Blood Cells into Peripheral Vein, Percutaneous Approach (ICD-10-PCS; principal; 2019-11-14)
DX: D50.0 Iron deficiency anemia secondary to blood loss (chronic) (principal); E66.9 Obesity, unspecified; Z68.38 Body mass index [BMI] 38.0-38.9, adult; N92.0 Excessive and frequent menstruation with regular cycle; R82.81 Pyuria; D25.0 Submucous leiomyoma of uterus; N83.202 Unspecified ovarian cyst, left side
CPT/HCPCS: 36415; 36430; 71046-TC-FY; 76830-TC; 76856-TC; 80053; 81003; 82728; 83036; 83540; 83550; 84443; 84702; 85025; 85027; 85610; 85730; 86850; 86900; 86901; 86922; 93005; 93010; 99285-25; J1410; J1756; P9058; U0003

== ENCOUNTER 2020-01-06 06:00 | Day surgery (SDC) | payer BC ==
[2020-01-02 15:29] VITALS: BMI 36.3
[2020-01-06] MEDS ORDERED: CLINDAMYCIN PHOSPHATE 600 MG/4 ML VIAL IVPB ONE (09:10)
[2020-01-06] MEDS ORDERED: ONDANSETRON 4 MG/2 ML VIAL IVPUSH PRN (10:08)
[2020-01-06] MEDS ORDERED: oxyCODONE HCL 5 MG TABLET PO PRN ×2 (10:08)
[2020-01-06] MEDS ORDERED: LACTATED RINGERS SOLUTION 1,000 ML IV SCH (10:15)
[2020-01-06 12:34] VITALS: TEMP 97.2
[2020-01-06 13:41] VITALS: BP 112/71; PULSE 68
== END 2020-01-06 13:45 | disposition home or self-care (01) ==
LOC: JASU-SURG 06:00
PROVIDERS: ATTEND Obstetrics & Gynecology
PROC: 0UJD8ZZ Inspection of Uterus and Cervix, Via Natural or Artificial Opening Endoscopic (ICD-10-PCS; 2020-01-06)
PROC: 0UB98ZZ Excision of Uterus, Via Natural or Artificial Opening Endoscopic (ICD-10-PCS; principal; 2020-01-06 09:00)
PROC: 0UDB7ZX Extraction of Endometrium, Via Natural or Artificial Opening, Diagnostic (ICD-10-PCS; 2020-01-06 09:00)
DX: N92.1 Excessive and frequent menstruation with irregular cycle (principal); D25.0 Submucous leiomyoma of uterus; D64.9 Anemia, unspecified
CPT/HCPCS: 81025; 88305-TC; 94760

== ENCOUNTER 2020-04-19 23:46 | Emergency (ER) | payer BC ==
[2020-04-20 00:03] VITALS: BP 126/72; PULSE 118; TEMP 98.8; BMI 36.6
[2020-04-20] MEDS ORDERED: morphine CARPU-JECT 2 MG/1 ML DISP.SYRIN IVPUSH ONE (00:27)
[2020-04-20] MEDS ORDERED: SODIUM CHLORIDE 0.9% 500 ML INFUS.BAG IV ONE (00:27)
[2020-04-20] MEDS ORDERED: MORPHINE SULFATE 2 MG/ML VIAL ONE (00:47)
[2020-04-20 01:22] LABS: BASO % 1.1 % (0-2.0); EOS % 3.1 % (0-4.5); HEMATOCRIT 29.7 % (32.4-45.2); HEMOGLOBIN 9.3 GM/dL (10.7-15.3); LYMPH % 19.2 % (8-40); MCH 26.6 pg (25.7-33.7); MCHC 31.4 g/dl (32.0-36.0); MEAN CELL VOLUME 84.8 fl (80-96); MEAN PLT VOLUME 6.8 fl (7.5-11.1); MONO % 10.5 % (3.8-10.2); NEUT % 66.1 % (42.8-82.8); PLATELET COUNT 500 K/MM3 (134-434); RDW 19.7 % (11.6-15.6); WHITE BLOOD COUNT 8.8 K/mm3 (4.0-10.0)
[2020-04-20 01:37] LABS: POTASSIUM 3.7 mmol/L (3.5-5.1)
[2020-04-20 01:39] LABS: ALBUMIN 2.8 g/dl (3.4-5.0); BLOOD UREA NITROGEN 8.6 mg/dL (7-18); CALCIUM 8.3 mg/dL (8.5-10.1)
[2020-04-20 01:42] LABS: CREATININE 0.6 mg/dL (0.55-1.3)
[2020-04-20 01:44] LABS: BILIRUBIN,TOTAL 0.1 mg/dL (0.2-1); TOT PROT 6.7 g/dl (6.4-8.2)
== END 2020-04-20 03:35 | disposition home or self-care (01) ==
LOC: JER 23:46
DX: N81.4 Uterovaginal prolapse, unspecified (principal); N76.0 Acute vaginitis
CPT/HCPCS: 36415; 76830-TC; 80053; 83605; 85025; 99285-25

== ENCOUNTER 2020-04-27 04:13 | Day surgery (SDC) | payer BC ==
[2020-04-24 11:29] VITALS: BMI 36.6
[2020-04-27] MEDS ORDERED: LIDOCAINE HCL/PF 2% SDV 5ML VIAL ONE (07:37)
[2020-04-27] MEDS ORDERED: PROPOFOL 20 ML ONE (07:38)
[2020-04-27] MEDS ORDERED: MIDAZOLAM HCL 2 MG/2 ML SINGLE DOSE VIAL ONE (07:38)
[2020-04-27] MEDS ORDERED: oxyCODONE HCL 5 MG TABLET PO PRN ×2 (08:07)
[2020-04-27] MEDS ORDERED: ONDANSETRON 4 MG/2 ML VIAL IVPUSH PRN (08:07)
[2020-04-27] MEDS ORDERED: LACTATED RINGERS SOLUTION 1,000 ML IV SCH (08:15)
[2020-04-27] MEDS ORDERED: VASOPRESSIN 20 UNITS/ML VIAL IV ONE (08:21)
[2020-04-27] MEDS ORDERED: KETOROLAC TROMETHAMINE 30 MG/1 ML VIAL ONE (08:29)
[2020-04-27] MEDS ORDERED: ONDANSETRON 4 MG/2 ML VIAL ONE (08:29)
[2020-04-27] MEDS ORDERED: DEXAMETHASONE SOD PHOSPHATE 4 MG/1 ML VIAL ONE (08:29)
[2020-04-27] MEDS ORDERED: ceFAZolin SODIUM 1 GM VIAL ONE (08:29)
[2020-04-27] MEDS ORDERED: ceFAZolin 2 GRAM PREMIX BAG IVPB ONE (08:30)
[2020-04-27 12:30] LABS: BASO % 0.9 % (0-2.0); EOS % 0.2 % (0-4.5); HEMATOCRIT 26.6 % (32.4-45.2); HEMOGLOBIN 8.3 GM/dL (10.7-15.3); LYMPH % 10.9 % (8-40); MCH 26.6 pg (25.7-33.7); MCHC 31.2 g/dl (32.0-36.0); MEAN CELL VOLUME 85.1 fl (80-96); MEAN PLT VOLUME 6.5 fl (7.5-11.1); MONO % 2.2 % (3.8-10.2); NEUT % 85.8 % (42.8-82.8); PLATELET COUNT 439 K/MM3 (134-434); RBC 3.13 M/mm3 (3.60-5.2); RDW 21.1 % (11.6-15.6); WHITE BLOOD COUNT 7.5 K/mm3 (4.0-10.0)
[2020-04-27] MEDS ORDERED: ESTROGENS,CONJUGATED 25 MG VIAL IVPB ONE ×2 (13:29→15:30)
[2020-04-27 19:32] VITALS: BP 121/68; PULSE 100; TEMP 98.9
== END 2020-04-27 20:08 | disposition home or self-care (01) ==
LOC: JASU-SURG 04:13 → JASUSAT 04:13 → J3W 15:10 → JASUSAT 20:08
PROVIDERS: ATTEND Obstetrics & Gynecology
PROC: 0UB97ZZ Excision of Uterus, Via Natural or Artificial Opening (ICD-10-PCS; principal; 2020-04-27 08:00)
PROC: 0UDB7ZZ Extraction of Endometrium, Via Natural or Artificial Opening (ICD-10-PCS; 2020-04-27 08:00)
DX: D25.0 Submucous leiomyoma of uterus (principal); N92.1 Excessive and frequent menstruation with irregular cycle; D64.9 Anemia, unspecified
CPT/HCPCS: 36415; 81025; 85025; 88305-TC; 94010; 94760; J1410

== ENCOUNTER 2023-07-17 04:07 | Day surgery (SDC) | payer OTHER ==
[2023-07-13 15:45] VITALS: BMI 23.6
[2023-07-17] MEDS ORDERED: BUPIVACAINE HCL/PF 0.5% (5MG/ML) 10 ML VIAL ONE (07:41)
[2023-07-17] MEDS ORDERED: DEXAMETHASONE SOD PHOSPHATE 4 MG/1 ML VIAL ONE (08:04)
[2023-07-17] MEDS ORDERED: ONDANSETRON 4 MG/2 ML VIAL ONE (08:04)
[2023-07-17] MEDS ORDERED: KETOROLAC TROMETHAMINE 30 MG/1 ML VIAL ONE (08:04)
[2023-07-17] MEDS ORDERED: LIDOCAINE HCL/PF 2% SDV 5ML VIAL ONE (08:04)
[2023-07-17] MEDS ORDERED: ROCURONIUM BROMIDE 50 MG/5 ML SYRINGE ONE (08:04)
[2023-07-17] MEDS ORDERED: oxyCODONE HCL 5 MG TABLET PO PRN (08:06)
[2023-07-17] MEDS ORDERED: PROPOFOL 20 ML ONE (08:09)
[2023-07-17] MEDS ORDERED: LACTATED RINGERS SOLUTION 1,000 ML IV SCH (08:15)
[2023-07-17] MEDS ORDERED: ACETAMINOPHEN INJECTION 100 ML IVPB ONE (08:52)
[2023-07-17] MEDS ORDERED: FENTANYL CITRATE/PF 50 MCG/ML VIAL ONE ×2 (08:57→12:04)
[2023-07-17] MEDS ORDERED: MIDAZOLAM HCL 2 MG/2 ML SINGLE DOSE VIAL ONE (08:57)
[2023-07-17] MEDS ORDERED: SODIUM CHLORIDE 0.9% P/F 10 ML VIAL IJ ONE (09:46)
[2023-07-17] MEDS ORDERED: ceFAZolin SODIUM 1 GM VIAL ONE (09:46)
[2023-07-17] MEDS: ceFAZolin SODIUM 1 GM VIAL IVPB ONE ×2 (09:47)
[2023-07-17] MEDS ORDERED: HYDROmorphone HCl 2 MG/ML VIAL ONE (10:06)
[2023-07-17] MEDS ORDERED: SUGAMMADEX SODIUM 200 MG/2 ML VIAL ONE (10:49)
[2023-07-17 12:48] VITALS: RESP 15
[2023-07-17] MEDS ORDERED: ONDANSETRON *ODT* 4 MG TABLET ONE (14:27)
[2023-07-17] MEDS: ONDANSETRON 4 MG/2 ML VIAL IVPUSH PRN (14:29)
[2023-07-17 14:35] VITALS: BP 97/59; PULSE 66; TEMP 97.8
== END 2023-07-17 15:58 | disposition home or self-care (01) ==
LOC: JASU-SURG 04:07
PROVIDERS: ATTEND Obstetrics & Gynecology
PROC: 0UB14ZZ Excision of Left Ovary, Percutaneous Endoscopic Approach (ICD-10-PCS; 2023-07-17)
PROC: 0UT64ZZ Resection of Left Fallopian Tube, Percutaneous Endoscopic Approach (ICD-10-PCS; principal; 2023-07-17 09:00)
DX: N83.8 Other noninflammatory disorders of ovary, fallopian tube and broad ligament (principal); D27.1 Benign neoplasm of left ovary
CPT/HCPCS: 81025; 86850; 86900; 86901; 88108; 88305-TC; 94760; J0131; Q0162